=== PATIENT | male | born 1975 | race Caucasian/White ===

== ENCOUNTER 2022-04-04 14:44 | Emergency (ER) | payer MEDICAID ==
[~2022-04-04] VITALS: Ht 175.3 cm; Wt 87.0 kg
[2022-04-04 14:58] VITALS: BP 135/75
[2022-04-04] MEDS ORDERED: LIDOcaine 2% 10ml TOPICAL JELLY (Urojet) TP ONE (16:05)
== END 2022-04-04 16:55 | disposition home or self-care (01) ==
LOC: ER 14:45
DX: T83.098A Other mechanical complication of other urinary catheter, initial encounter (principal); Z88.5 Allergy status to narcotic agent
CPT/HCPCS: 51702; 99284; A4358

== ENCOUNTER 2022-05-19 13:53 | Emergency (ER) | payer MEDICAID ==
[~2022-05-19] VITALS: Ht 175.3 cm; Wt 83.4 kg
[2022-05-19 13:56] VITALS: BP 130/91
== END 2022-05-19 19:56 | disposition home or self-care (01) ==
LOC: ER 13:54
DX: T83.118A Breakdown (mechanical) of other urinary devices and implants, initial encounter (principal); F17.200 Nicotine dependence, unspecified, uncomplicated; Z88.5 Allergy status to narcotic agent; Y84.6 Urinary catheterization as the cause of abnormal reaction of the patient, or of later complication, without mention of misadventure at the time of the procedure; Y92.89 Other specified places as the place of occurrence of the external cause
CPT/HCPCS: 51702; 99284; A4340; A4358

== ENCOUNTER 2022-06-28 09:54 | Emergency (ER) | payer MEDICAID ==
[~2022-06-28] VITALS: Ht 175.3 cm; Wt 91.8 kg
[2022-06-28 10:00] VITALS: BP 127/72
[2022-06-28] MEDS ORDERED: LidoCAINE 2% Topical Jelly 11mL syringe TOP ONE (10:55)
[2022-06-28] MEDS ORDERED: FLO0.4C PO (11:05)
[2022-06-28 15:20] LABS: CLARITY,URINE CLEAR (Clear); COLOR,URINE YELLOW (Yellow); GLUCOSE, URINE NEGATIVE (Neg); KETONES,URINE NEGATIVE (Neg); LEUKOCYTE ESTERASE ,URINE SMALL (Neg); NITRITES, URINE NEGATIVE (Neg); OCCULT BLOOD,URINE NEGATIVE (Neg); PROTEIN,URINE NEGATIVE (Neg); UROBILINOGEN,URINE 0.2 E.U/dL (0.2-1.0)
[2022-06-28 15:21] LABS: UA COLLECTION TYPE FOLEY CATH
[2022-06-28 15:25] LABS: WBC,URINE 50-100 /HPF (0-4)
[2022-06-28 15:26] LABS: MUCUS STRANDS FEW /LPF (Neg); RBC,URINE NONE SEEN /HPF (0-2); SQUAMOUS EPITHELIAL CELL,UR FEW /LPF (FEW)
[2022-06-28 15:27] LABS: BACTERIA,URINE 4+ /HPF (Neg); WBC CLUMPS,URINE MODERATE /HPF (NEGATIVE)
[2022-06-29] MEDS ORDERED: CEPH-585 PO (17:09)
== END 2022-06-28 13:02 | disposition home or self-care (01) ==
LOC: ER 09:55
DX: T83.038A Leakage of other urinary catheter, initial encounter (principal); N39.0 Urinary tract infection, site not specified; Z88.5 Allergy status to narcotic agent; Z79.899 Other long term (current) drug therapy; Y84.6 Urinary catheterization as the cause of abnormal reaction of the patient, or of later complication, without mention of misadventure at the time of the procedure; Y92.89 Other specified places as the place of occurrence of the external cause
CPT/HCPCS: 51702; 81001; 87077; 87088; 87186; 99283; 99284; A4338; A4358